=== PATIENT | male | born 1965 | race Caucasian/White ===

== ENCOUNTER 2017-07-25 14:50 | Emergency (ER) | payer BC ==
[2017-07-25 15:47] VITALS: BP 128/88
--- NOTE | 2017-07-25 16:08 | UC ---
Throat Pain/Nasal Richard HPI - HPI Summary HPI Summary: worsening sinus pain and nasal congestion. Past couple of weeks increase sinus headache and fatigue - History of Current Complaint Chief Complaint: UCRespiratory Stated Complaint: SINUS Time Seen by Provider: 07/25/17 15:52 Hx Obtained From: Patient Onset/Duration: Gradual Onset, Lasting Weeks Pain Intensity: 0 Cough: Nonproductive Associated Signs & Symptoms: Positive: Wheezing, Sinus Discomfort Related History: Smoking - Allergies/Home Medications Allergies/Adverse Reactions: Allergies Allergy/AdvReac Type Severity Reaction Status Date / Time No Known Allergies Allergy Verified 07/25/17 15:42 Home Medications: Home Medications Albuterol HFA INHALER* [Ventolin HFA Inhaler*] 2 puff INH Q4H PRN 07/25/17 [ History Confirmed 07/25/17] Levothyroxine TAB* [Synthroid 75 MCG TAB*] 75 mcg PO DAILY 07/25/17 [History Confirmed 07/25/17] Losartan TAB* [Cozaar TAB*] 100 mg PO DAILY 07/25/17 [History Confirmed 07/25/17 ] amLODIPine TAB* [Norvasc 5 mg TAB*] 10 mg PO DAILY 07/25/17 [History Confirmed 07/25/17] PMH/Surg Hx/FS Hx/Imm Hx Previously Healthy: No Endocrine History: Hypothyroidism Cardiovascular History: Hypertension - Surgical History Surgical History: Yes Surgery Procedure, Year, and Place: right hand surgery. tonsillectomy - Family History Known Family History: Positive: None - Social History Occupation: Employed Full-time Lives: With Family Alcohol Use: None Substance Use Type: None Smoking Status (MU): Heavy Every Day Tobacco Smoker Type: Cigarettes Amount Used/How Often: 1 ppd Have You Smoked in the Last Year: Yes Cessation Counseling: Counseled 3+Min - 10 Min Review of Systems Constitutional: Fatigue Skin: Negative Eyes: Negative ENT: Ear Ache, Sinus Congestion, Sinus Pain/Tenderness Respiratory: Cough Cardiovascular: Negative Gastrointestinal: Negative Genitourinary: Negative Motor: Negative Neurovascular: Negative Musculoskeletal: Negative Neurological: Negative Psychological: Negative Is Patient Immunocompromised?: No All Other Systems Reviewed And Are Negative: Yes Physical Exam Triage Information Reviewed: Yes Appearance: Ill-Appearing - mild, Pain Distress - mild, Obese Vital Signs: Initial Vital Signs Temp 98.1 F 07/25/17 15:39 Pulse 75 07/25/17 15:39 Resp 17 07/25/17 15:39 BP 128/88 07/25/17 15:39 Pulse Ox 99 07/25/17 15:39 Vital Signs Reviewed: Yes Eye Exam: Normal Eyes: Positive: Conjunctiva Clear ENT Exam: Normal ENT: Positive: Normal ENT inspection, Hearing grossly normal, Pharynx normal, Nasal congestion, TMs normal, Sinus tenderness, Uvula midline. Negative: Tonsillar swelling, Tonsillar exudate, Trismus, Hoarse voice, Dental tenderness Dental Exam: Normal Neck exam: Normal Neck: Positive: Supple, Nontender, No Lymphadenopathy Respiratory Exam: Normal Respiratory: Positive: Chest non-tender, No respiratory distress, No accessory muscle use, Wheezing Cardiovascular Exam: Normal Cardiovascular: Positive: RRR, No Murmur, Pulses Normal, Brisk Capillary Refill Musculoskeletal Exam: Normal Musculoskeletal: Positive: Strength Intact, ROM Intact, No Edema Neurological Exam: Normal Neurological: Positive: Alert, Muscle Tone Normal Psychological Exam: Normal Skin Exam: Normal Throat Pain/Nasal Course/Dx - Course Assessment/Plan: smoking cesasation information and support, flonase, augmentin increase fluids follow with pcp and [facility] - Differential Dx/Diagnosis Provider Diagnoses: Nicotine dependent, bronchospasm, acute rhinnosinusitis Discharge - Sign-Out/Discharge Documenting (check all that apply): Discharge - Discharge Plan Condition: Stable Disposition: HOME Prescriptions: Amoxicillin/Clavulanate TAB* [Augmentin TAB 875*] 875 mg PO BID #20 tab Fluticasone NASAL SPRAY 50MCG* [Flonase NASAL SPRAY 50MCG*] 2 spray BOTH NARES DAILY #1 btl Patient Education Materials: How to Stop Smoking (ED), Sinusitis (ED), How to Use Nasal [place] (ED) Referrals: Arthur Concepcion MD [Primary Care Provider] - If Needed Additional Instructions: Remember to use hydrocortisone cream when you use the nicotine patches to prevent that redness and irritation we spoke about!! Good [place] Leda - Billing Disposition and Condition Condition: STABLE Disposition: HOME
== END 2017-07-25 16:19 | disposition home or self-care (01) ==
LOC: UCCORT 14:50
DX: J98.01 Acute bronchospasm (principal); J01.90 Acute sinusitis, unspecified; F17.210 Nicotine dependence, cigarettes, uncomplicated; E03.9 Hypothyroidism, unspecified; I10 Essential (primary) hypertension
CPT/HCPCS: 99202; G0463